=== PATIENT | female | born 1965 | race Caucasian/White ===

== ENCOUNTER 2022-12-09 01:40 | Day surgery (SDC) | payer OTHER, SELFPAY ==
[2022-12-04 14:27] VITALS: BMI 34.8
--- NOTE | 2022-12-04 14:31 | PC.NURSE ---
Report to the Outpatient Waiting Room, entrance under the green pavilion located off [facility], at time 0630 on date 12/09/22. Planned Procedure Time: 0830. Time changes happen often and if your time is changed the preop area will call you the afternoon before. - You and your visitor will be asked to self-screen and do not enter if you have any COVID symptoms. - A mask is optional within the hospital at this time. Patients may have clear liquids (water, carbonated beverages, clear teas, apple juice) until 3 hours prior to surgery with a maximum of 20 ounces. - No food from midnight until time of surgery Take the following medications with a SIP of water the morning of surgery: NONE DO NOT STOP ANY OF YOUR OTHER PRESCRIPTION MEDICATIONS PRIOR TO SURGERY ?EXCEPT THE FOLLOWING Medications to discontinue per physician: ADVIL Date to take last dose: PER DR. RUSHING PT STATES LAST DOSE OF MOUNJARO WAS 11/[address] RUSHING Please no make-up, nail pashto, hairspray, perfume, deodorant, or body powder the day of surgery. No jewelry (including any body piercings) or valuables the day of surgery, leave them at home. Please take a shower or bath the night before, or the morning of, surgery with an antibacterial soap. Wear comfortable, loose fitting clothing. - Jewelry must be removed prior to entering the operating room. Rings and piercings that are not removed may be cut off. - The hospital will not accept responsibility for valuables. - Please leave all valuables, including medications, at home the day of surgery. If you are going home after surgery, a licensed regional company truck driver must drive you home. - NO public transportation without another adult if you receive anesthesia. - We recommend that an adult stay with you for 24 hours following discharge. - We also recommend that you do not drive, make important decision, drink alcoholic beverages, or take any drugs that were not prescribed by your health care provider for at least 24 hours after your discharge time. Follow any additional instructions given to you from your surgeon. If you or anyone in your household have experienced Covid symptoms in the past week, please notify your surgeon or the nurse liaison at the phone number below for possible testing. Telephone instructions given to PT - PACO FERNANDES and asked if any additional questions and then verbalized understanding. Patient advised to call surgeon office or pre surgery nurse liaison [phone] if any additional questions.
[2022-12-09] VITALS (7 sets, daily range): BP systolic 113–126; BP diastolic 64–73; PULSE 68–91; RESP 9–16; TEMP 36.3–36.8; O2SAT 93–100
[2022-12-09] MEDS: LACTATED RINGERS 1,000 ML 30 ML IV CONT ×2 (07:07→09:27)
--- NOTE | 2022-12-09 07:13 | WPDHPUPDATE1 ---
History and Physical Update Update Date/Time: 12/09/22 07:13 History and Physical has been reviewed, including an updated exam of the patient. There are NO changes in the patient's condition. Risks, benefits, and alternatives have been discussed and questions answered. Patient agrees to proceed with procedure.
--- NOTE | 2022-12-09 07:15 | W.PM.PROC2 ---
Procedure Note - Detailed Date of Procedure 12/09/22 Pre-op Diagnosis bilat breast implant rupture Post-op Diagnosis Same Procedure Performed Bilateral implant removal with capsulectomy Surgeon Nikolay Rodriguez MD Anesthesia General Findings Right implant with extracapsular rupture noted anterior lateral. Clinically all silicone removed. Significant capsulectomy completed. Right implant with intracapsular rupture. Clinically all silicone removed. Significant capsulectomy completed. Description of Procedure She is here for the above procedure. Preoperatively risks, benefits, alternatives were discussed in extensive detail. Want her to be very realistic about risks involved as well as expectations. We discussed options of drains with the procedure including all her options. She understands we can not guarantee full capsule removal. Made sure answered everyone of her questions to her satisfaction again today. She voiced clear understanding. Consent was obtained. She was taken to the operating room placed supine on the operating room table. Anesthesia provided by anesthesiology. She was prepped and draped in the standard sterile fashion. Surgical time-out was. 1% lidocaine and 0.25% Marcaine with epinephrine was used to provide a field block. Fifteen blade used to excise along previous scar. Dissection was continued down to the capsules identified it is an elevated above the capsule for majority of the capsule. At this point the implant and the capsule were removed. Capsule sent to pathology. I copiously irrigated with 3 L of saline solution on TUR tubing. Verified strict hemostasis. I closed with 2-0 Vicryl followed by 3-0 Stratafix in running subcuticular 4-0 Monocryl and tissue glue. Dressings and a surgical bra were placed. She tolerated the procedure well. Estimated Blood Loss 50 Drains No Packing No Pathology Yes (Bilateral breast capsules) Complications No immediate complications Condition Stable Disposition PACU
--- NOTE | 2022-12-09 07:47 | P.PNAN_ITS ---
Anes - Initial Pre Proc Eval Procedure: Operation Date: 12/09/22 08:30 Proposed Procedures p Removal Bilateral Breast Implants with Capsulectomy - Nikolay Rodriguez MD Date/Time: 12/09/22 07:47 Surgeon: Nikolay Rodriguez MD Pre Op Diagnosis: bilat breast implant rupture Patient Data Age: 57 Gender: F Height: 1.69 m Weight: 98.35 kg Last Vital Signs Temp 36.8 C 12/09/22 06:38 Pulse 78 12/09/22 06:38 Resp 16 12/09/22 06:38 BP 124/67 12/09/22 06:38 Pulse Ox 96 12/09/22 06:38 O2 Del Method Room Air 12/09/22 06:38 Allergies Allergy/AdvReac Type Severity Reaction Status Date / Time iodine Allergy Anaphylaxis Verified 12/09/22 06:41 shellfish derived Allergy Anaphylaxis Verified 12/09/22 06:41 Home Medications Medication Instructions Recorded Confirmed Type ibuprofen 200 mg tablet (Advil) 800 mg PO BID PRN Pain 12/04/22 12/09/22 History temazepam 15 mg capsule 15 mg PO HS 12/04/22 12/09/22 History tirzepatide 15 mg/0.5 mL 15 mg subcut WEEKLY 12/04/22 12/09/22 History subcutaneous pen injector (Mounjaro) Patient hx anesthesia problems: none Family hx anesthesia problems: none Results Review: All pre-operative results and documents have been reviewed as part of the pre- operative evaluation. [facility] Social History Social History Smoking status: Never smoker Alcohol intake: never Substance use: never Substance use type: does not use Living arrangements: with family Spiritual care concerns: No Anes - Eval Final PreProcedure Day of Procedure 12/09/22 07:47 Patient weight: obese Heart: regular rate and rhythm Lungs: clear to auscultation Airway: Mallampati scale class II Neurological: alert and oriented Last oral intake: >/= 8 hours ASA classification: II Emergent: no Anesthetic plan: proceed Anesthesia type and monitoring: general LMA and standard monitoring Results Review: All pre-operative results and documents have been reviewed as part of the pre- operative evaluation. Informed Consent: The patient's anesthetic plan and its attendant risks and benefits were discussed with the patient/family/POA. Questions were solicited and answers provided to the satisfaction of the patient/family/POA.
[2022-12-09] MEDS: SCOPOLAMINE 1.5 MG PATCH TRANSDERM (07:56)
[2022-12-09] MEDS: ceFAZolin 2 GM/D5W 50 ML 2 GM/50 ML BAG IVPB (08:11)
[2022-12-09] MEDS: LIDO 1%/EPINEPHRINE 1:100,000 20 ML VIAL 30 ML INFILTRATE (08:36)
[2022-12-09] MEDS: BUPivacaine HCL 0.25% PF 30 ML VIAL INFILTRATE (08:37)
[2022-12-09] MEDS: HYDROmorphone HCL INJ (*CRX) 1 MG/ML SYR 0.5 MG IV PUSH ×4 (09:50→10:08)
[2022-12-09] MEDS: ONDANSETRON INJ 4 MG/2 ML VIAL IV PUSH (09:53)
[2022-12-09] MEDS: oxyCODONE HCL (*CRX) 5 MG TAB IR PO (10:51)
== END 2022-12-09 11:12 | disposition home or self-care (01) ==
PROVIDERS: PCP Internal Medicine Infectious Disease; Visit Provider Surgery Plastic and Reconstructive Surgery
PROC: 0HPT0JZ Removal of Synthetic Substitute from Right Breast, Open Approach (ICD-10-PCS; CPT 19371; principal; 2022-12-09 08:30)
DX: T85.49XA Other mechanical complication of breast prosthesis and implant, initial encounter (principal); Y83.8 Other surgical procedures as the cause of abnormal reaction of the patient, or of later complication, without mention of misadventure at the time of the procedure; E66.9 Obesity, unspecified; Z68.34 Body mass index [BMI] 34.0-34.9, adult
CPT/HCPCS: 19371; 88304; A9270; J0131; J0690; J1100; J1170; J2250; J2405; J2704; J3010; J7120